=== PATIENT | female | born 1975 | race Caucasian/White ===

== ENCOUNTER 2018-01-24 09:21 | Emergency (ER) | payer OTHER ==
[~2018-01-24] VITALS: Ht 152.4 cm; Wt 52.2 kg
[2018-01-24 09:28] VITALS: BP 134/87
[2018-01-24] MEDS ORDERED: KETOROLAC TROMETHAMINE INJ 30 MG/ML VIAL ONE (09:43)
--- NOTE | 2018-01-24 09:52 | NUR ---
PT SIGNED WAIVER FOR TORADOL SHOT. OK PER MD VELAZCO
[2018-01-24] MEDS ORDERED: KETOROLAC TROMETHAMINE INJ 60 MG/2 ML VIAL IM ONE (10:00)
== END 2018-01-24 09:53 | disposition home or self-care (01) ==
LOC: ER 09:23
DX: G89.29 Other chronic pain (principal); M79.671 Pain in right foot; M79.672 Pain in left foot; G35 Multiple sclerosis; G40.909 Epilepsy, unspecified, not intractable, without status epilepticus; Z91.040 Latex allergy status
CPT/HCPCS: 96372; 99283; A4606; J1885; Z7610

== ENCOUNTER 2023-12-06 23:59 | Inpatient (IN) | payer MEDICAID, OTHER ==
[~2023-12-06] VITALS: Ht 154.9 cm; Wt 73.6 kg
[2023-12-07] MEDS ORDERED: VANCOMYCIN 1 GM /D5W 250 ML PB IV ONE ×2 (01:07→12:10)
[2023-12-07] MEDS: VANCOMYCIN 1 GM in IV D5W 250 ML IV ONE (01:25)
[2023-12-07 01:48] LABS: BASOPHILS # (AUTO) 0.1 K/uL (0.0-0.2); BASOPHILS % (AUTO) 0.5 % (0.0-2.0); EOSINOPHILS # (AUTO) 0.1 K/uL (0.0-0.7); EOSINOPHILS % (AUTO) 0.5 % (0.0-6.0); HEMATOCRIT 41 % (33-45); HEMOGLOBIN 13.5 g/dL (11.5-14.8); LYMPHOCYTES # (AUTO) 3.2 K/uL (0.8-4.8); LYMPHOCYTES % (AUTO) 22.9 % (20.0-44.0); MEAN CORPUSCULAR HEMOGLOBIN 28 PG (26.0-33.0); MEAN CORPUSCULAR HGB CONC 33 g/dl (31.0-36.0); MEAN CORPUSCULAR VOLUME 84 fL (82-100); NEUTROPHILS # (AUTO) 9.6 K/uL (1.8-8.9); NEUTROPHILS % (AUTO) 69.1 % (43.0-81.0); PLATELET COUNT (AUTO) 516 K/uL (150-450); RED BLOOD CELL COUNT(AUTO) 4.83 MIL/uL (4.0-5.2); RED CELL DISTRIBUTION WIDTH 13.2 % (11.5-15.0); WHITE BLOOD COUNT (AUTO) 13.8 K/uL (4.3-11.0)
[2023-12-07] MEDS: MORPHINE SULFATE INJ 2 MG/ML DISP.SYRIN IV ONE (02:00)
[2023-12-07] MEDS ORDERED: MORPHINE SULFATE INJ 4 MG/ML DISP.SYRIN ONE (02:00)
[2023-12-07 02:06] LABS: ALANINE AMINOTRANSFERASE 49 U/L (12-78); ALBUMIN 2.3 g/dL (3.4-5.0); ALKALINE PHOSPHATASE 201 U/L (46-116); ASPARTATE AMINOTRANSFERASE 26 U/L (15-37); BILIRUBIN,DIRECT 0.1 mg/dL (0.0-0.2); BILIRUBIN,TOTAL 0.2 mg/dL (0.2-1.0); CALCIUM, SERUM 8.3 mg/dL (8.5-10.1); CARBON DIOXIDE 29 mmol/L (21-32); CHLORIDE 102 mmol/L (98-107); CREATININE 0.9 mg/dL (0.6-1.3); GLUCOSE 353 mg/dL (74-106); POTASSIUM 4.2 mmol/L (3.5-5.1); SODIUM SERUM 139 mmol/L (136-145); TOTAL PROTEIN, SERUM 7.9 g/dL (6.4-8.2); UREA NITROGEN, BLOOD 12 mg/dL (7-18)
[2023-12-07 02:09] LABS: INR 1.09 (0.91-1.10); PARTIAL THROMBOPLASTIN TIME 31.4 SEC (24.3-34.3); PROTHROMBIN TIME 11.5 SECS (9.2-11.1)
[2023-12-07 02:27] LABS: LACTIC ACID 2.6 mmol/L (0.4-2.0)
[2023-12-07] MEDS ORDERED: Z GUARD REMEDY 4 OZ OINT TP PRN (03:00)
[2023-12-07] MEDS ORDERED: TEMAZEPAM 15 MG CAPSULE PO PRN (03:00)
[2023-12-07] MEDS ORDERED: DEXTROSE 50%-WATER 50 ML DISP.SYRIN IV PRN ×2 (03:00→20:30)
[2023-12-07] MEDS ORDERED: MAG HYDROX/AL HYDROX/SIMETH 30 ML UDC PO PRN (03:00)
[2023-12-07] MEDS ORDERED: ACETAMINOPHEN 325 MG TABLET PO PRN (03:00)
[2023-12-07] MEDS ORDERED: ONDANSETRON HCL/PF 4 MG/2 ML VIAL IVP PRN (03:00)
[2023-12-07] MEDS: BLOOD SUGAR DIAGNOSTIC 1 EACH STRIP IN SCH ×2 (07:30→23:11)
[2023-12-07] MEDS ORDERED: HYDROCODONE/APAP 5/325MG TABLET ONE ×2 (07:36→16:00)
[2023-12-07] MEDS: HYDROCODONE/APAP 5/325MG TABLET PO PRN (07:37)
[2023-12-07] MEDS ORDERED: PANTOPRAZOLE 40 MG TABLET.DR PO ONE (07:50)
[2023-12-07] MEDS: PANTOPRAZOLE 40 MG TABLET.DR PO SCH (07:50)
[2023-12-07] MEDS ORDERED: CARB-53 PO (07:52)
[2023-12-07] MEDS ORDERED: INSU100V7 SQ (07:52)
[2023-12-07] MEDS ORDERED: CLON2TAB PO (07:52)
[2023-12-07] MEDS ORDERED: ACET-2605 PO (07:52)
[2023-12-07] MEDS ORDERED: FURO-145 PO (07:52)
[2023-12-07] MEDS ORDERED: QUET400T PO (07:52)
[2023-12-07] MEDS: VANCOMYCIN 1 GM in IV D5W 250 ML IV SCH (12:12)
[2023-12-07] MEDS ORDERED: LIDOCAINE 1% INJ 50 ML MDV IJ ONE (15:57)
[2023-12-07] MEDS: HYDROCODONE/APAP 10/325MG TABLET PO PRN (18:00)
[2023-12-07] MEDS: INSULIN REGULAR, HUMAN 100 UNIT/ML 3 ML VIAL SQ PRN (18:21)
[2023-12-07] MEDS ORDERED: ACETAMINOPHEN ES 500 MG TABLET PO PRN (18:30)
[2023-12-07] MEDS: IV NS 0.9% 1,000 ML IV PRN (19:01)
[2023-12-07 20:00] VITALS: BP 118/78; TEMP 98.1; O2SAT 100
[2023-12-07] MEDS: QUETIAPINE FUMARATE 100 MG TABLET PO SCH (22:53)
[2023-12-07] MEDS: *INSULIN REGULAR(HUMULIN R)HUM 100 UNIT/ML VIAL SQ PRN (22:55)
[2023-12-07] MEDS: INSULIN GLARGINE, 100 UNIT/ML CARTRIDGE SQ SCH (22:58)
[2023-12-08] MEDS: INSULIN REGULAR, HUMAN 100 UNIT/ML 3 ML VIAL SQ PRN (07:00)
[2023-12-08 07:49] LABS: BASOPHILS # (AUTO) 0.1 K/uL (0.0-0.2); BASOPHILS % (AUTO) 0.5 % (0.0-2.0); EOSINOPHILS # (AUTO) 0.2 K/uL (0.0-0.7); EOSINOPHILS % (AUTO) 1.7 % (0.0-6.0); HEMATOCRIT 38 % (33-45); HEMOGLOBIN 12.8 g/dL (11.5-14.8); LYMPHOCYTES # (AUTO) 4.2 K/uL (0.8-4.8); LYMPHOCYTES % (AUTO) 36.6 % (20.0-44.0); MEAN CORPUSCULAR HEMOGLOBIN 28 PG (26.0-33.0); MEAN CORPUSCULAR HGB CONC 34 g/dl (31.0-36.0); MEAN CORPUSCULAR VOLUME 84 fL (82-100); NEUTROPHILS % (AUTO) 52.2 % (43.0-81.0); PLATELET COUNT (AUTO) 499 K/uL (150-450); RED BLOOD CELL COUNT(AUTO) 4.56 MIL/uL (4.0-5.2); RED CELL DISTRIBUTION WIDTH 13.3 % (11.5-15.0); WHITE BLOOD COUNT (AUTO) 11.6 K/uL (4.3-11.0)
[2023-12-08 08:00] VITALS: BP 94/66; TEMP 97.9; O2SAT 95
[2023-12-08 08:28] LABS: CALCIUM, SERUM 8.3 mg/dL (8.5-10.1); CREATININE 0.6 mg/dL (0.6-1.3); MAGNESIUM 1.9 mg/dL (1.8-2.4)
[2023-12-08] MEDS: CARBAMAZEPINE XR 200 MG TAB.SR.12H PO SCH (09:00)
[2023-12-08] MEDS: clonazePAM 1 MG TABLET PO SCH (09:00)
[2023-12-08 16:00] VITALS: BP 108/69; TEMP 97.7; O2SAT 97
[2023-12-08] MEDS ORDERED: POLYETHYLENE GLYCOL 3350 17 GM POWD.PACK PO PRN (18:00)
[2023-12-08] MEDS: DOCUSATE SODIUM 100 MG CAPSULE PO SCH (18:11)
[2023-12-08 20:00] VITALS: BP 110/71; TEMP 97.7; O2SAT 96
[2023-12-08] MEDS: VANCOMYCIN 750 MG in IV D5W 250 ML IV SCH (20:52)
[2023-12-09] VITALS: BP 115/73; TEMP 97.8; O2SAT 96
[2023-12-09 08:00] VITALS: BP 90/67; TEMP 97.5
[2023-12-09] MEDS: CARBAMAZEPINE 200 MG TABLET PO SCH (10:25)
[2023-12-09 12:00] VITALS: BP 94/66; TEMP 97.7; O2SAT 99
[2023-12-09] MEDS ORDERED: QUETIAPINE FUMARATE 25 MG TABLET PO SCH (14:00)
[2023-12-09 16:00] VITALS: BP 97/70
[2023-12-09 20:19] VITALS: BP 109/67; TEMP 98.2; O2SAT 96
[2023-12-09] MEDS: QUETIAPINE FUMARATE 100 MG TABLET PO SCH (22:23)
[2023-12-09] MEDS: MAGNESIUM HYDROXIDE 30 ML UDC PO PRN (22:35)
[2023-12-10 04:23] LABS: PREGNANCY TEST URINE QUAL NEGATIVE (NEGATIVE)
[2023-12-10] MEDS ORDERED: FENTANYL PF 100MCG/2ML AMPUL ONE ×2 (07:09→08:12)
[2023-12-10] MEDS ORDERED: FAMOTIDINE/PF INJ 20 MG/2 ML VIAL IV ONE (07:09)
[2023-12-10] MEDS ORDERED: BUPIVACAINE 0.5 % PF 150 MG/30 ML VIAL ONE (07:12)
[2023-12-10] MEDS ORDERED: ANESTHESIA TRAY IN PYXIS 1 EA TRAY MC ONE (07:12)
[2023-12-10] MEDS ORDERED: BUPIVACAINE 0.25% 75 MG/30 ML VIAL ONE (07:12)
[2023-12-10] MEDS ORDERED: LIDOCAINE HCL/MPF 1% 30 ML VIAL IJ ONE (07:12)
[2023-12-10] MEDS ORDERED: LIDOCAINE 1%-EPI 1:100,000 20 ML VIAL ONE (07:12)
[2023-12-10] MEDS ORDERED: CELLULOSE,OXIDIZED 1 EA PACK MC ONE (08:08)
[2023-12-10] MEDS: clonazePAM 0.5 MG TABLET PO SCH (09:00)
[2023-12-10 09:25] VITALS: BP 95/73; TEMP 98.2; O2SAT 96
[2023-12-10 09:54] LABS: BASOPHILS # (AUTO) 0.1 K/uL (0.0-0.2); BASOPHILS % (AUTO) 0.8 % (0.0-2.0); EOSINOPHILS # (AUTO) 0.1 K/uL (0.0-0.7); EOSINOPHILS % (AUTO) 0.9 % (0.0-6.0); HEMATOCRIT 38 % (33-45); HEMOGLOBIN 12.2 g/dL (11.5-14.8); LYMPHOCYTES # (AUTO) 4.5 K/uL (0.8-4.8); LYMPHOCYTES % (AUTO) 31.2 % (20.0-44.0); MEAN CORPUSCULAR HEMOGLOBIN 28 PG (26.0-33.0); MEAN CORPUSCULAR HGB CONC 32 g/dl (31.0-36.0); MEAN CORPUSCULAR VOLUME 86 fL (82-100); MONOCYTES # (AUTO) 1.1 K/uL (0.1-1.30); MONOCYTES % (AUTO) 7.3 % (2.0-12.0); NEUTROPHILS # (AUTO) 8.7 K/uL (1.8-8.9); NEUTROPHILS % (AUTO) 59.8 % (43.0-81.0); PLATELET COUNT (AUTO) 480 K/uL (150-450); RED BLOOD CELL COUNT(AUTO) 4.36 MIL/uL (4.0-5.2); RED CELL DISTRIBUTION WIDTH 13.9 % (11.5-15.0); WHITE BLOOD COUNT (AUTO) 14.5 K/uL (4.3-11.0)
[2023-12-10 10:08] LABS: CALCIUM, SERUM 7.5 mg/dL (8.5-10.1); CREATININE 0.7 mg/dL (0.6-1.3); MAGNESIUM 2.1 mg/dL (1.8-2.4); PHOSPHORUS 4.4 mg/dL (2.5-4.9); POTASSIUM 4.6 mmol/L (3.5-5.1)
[2023-12-10 16:00] VITALS: BP 100/51; TEMP 99.3; O2SAT 97
[2023-12-10 20:00] VITALS: BP 105/72; TEMP 98.6; O2SAT 98
[2023-12-10 20:22] LABS: PROTHROMBIN TIME 10.6 SECS (9.2-11.1)
[2023-12-11 07:00] VITALS: BP 109/74; TEMP 98.1; O2SAT 99
[2023-12-11 11:38] LABS: BASOPHILS # (AUTO) 0.1 K/uL (0.0-0.2); BASOPHILS % (AUTO) 0.5 % (0.0-2.0); EOSINOPHILS # (AUTO) 0.1 K/uL (0.0-0.7); EOSINOPHILS % (AUTO) 1.1 % (0.0-6.0); HEMATOCRIT 30 % (33-45); LYMPHOCYTES # (AUTO) 3.8 K/uL (0.8-4.8); LYMPHOCYTES % (AUTO) 34.8 % (20.0-44.0); MEAN CORPUSCULAR HEMOGLOBIN 28 PG (26.0-33.0); MEAN CORPUSCULAR HGB CONC 34 g/dl (31.0-36.0); MEAN CORPUSCULAR VOLUME 85 fL (82-100); MONOCYTES # (AUTO) 0.8 K/uL (0.1-1.30); MONOCYTES % (AUTO) 7.2 % (2.0-12.0); NEUTROPHILS # (AUTO) 6.2 K/uL (1.8-8.9); NEUTROPHILS % (AUTO) 56.4 % (43.0-81.0); PLATELET COUNT (AUTO) 489 K/uL (150-450); RED BLOOD CELL COUNT(AUTO) 3.54 MIL/uL (4.0-5.2); RED CELL DISTRIBUTION WIDTH 13.1 % (11.5-15.0); WHITE BLOOD COUNT (AUTO) 10.9 K/uL (4.3-11.0)
[2023-12-11 11:50] LABS: CALCIUM, SERUM 7.5 mg/dL (8.5-10.1); CREATININE 0.7 mg/dL (0.6-1.3); MAGNESIUM 1.9 mg/dL (1.8-2.4); PHOSPHORUS 3.2 mg/dL (2.5-4.9); POTASSIUM 4.1 mmol/L (3.5-5.1)
[2023-12-11 16:00] VITALS: BP 121/78; TEMP 97.7; O2SAT 100
[2023-12-11 20:00] VITALS: BP 120/78; TEMP 97.7; O2SAT 98
[2023-12-12 07:00] VITALS: BP 119/81; TEMP 97.8; O2SAT 100
[2023-12-12 07:04] LABS: CALCIUM, SERUM 7.5 mg/dL (8.5-10.1); CREATININE 0.8 mg/dL (0.6-1.3); POTASSIUM 3.8 mmol/L (3.5-5.1)
[2023-12-12] MEDS ORDERED: QUETIAPINE FUMARATE 25 MG TABLET PO PRN (09:00)
[2023-12-12] MEDS ORDERED: hydrOXYzine PAMOATE 25 MG CAPSULE PO PRN (09:00)
[2023-12-12 16:00] VITALS: BP 117/76; TEMP 97.5; O2SAT 99
[2023-12-12 20:00] VITALS: BP 109/76; TEMP 98.1; O2SAT 98
[2023-12-12] MEDS: QUETIAPINE FUMARATE 100 MG TABLET PO SCH (21:22)
[2023-12-13 08:00] VITALS: BP 120/83; TEMP 97.9; O2SAT 99
[2023-12-13 09:27] LABS: CALCIUM, SERUM 7.7 mg/dL (8.5-10.1); CREATININE 0.8 mg/dL (0.6-1.3)
[2023-12-13 16:00] VITALS: BP 111/76; TEMP 98.4; O2SAT 97
[2023-12-13 20:00] VITALS: BP 130/73; TEMP 97.9; O2SAT 95
[2023-12-13 20:39] LABS: HIV-1 p24 ANTIGEN NON REACTIVE (NONREACTIVE); HIV-1/2 ANTIBODY NON REACTIVE (NONREACTIVE)
[2023-12-14] MEDS ORDERED: CEPH-570 PO (08:45)
[2023-12-14] MEDS ORDERED: CLON0.5T4 PO (08:45)
[2023-12-14] MEDS ORDERED: Quetiapine Fumarate PO (08:45)
[2023-12-14] MEDS ORDERED: Insulin Glargine,Hum SQ (08:45)
== END 2023-12-14 18:06 | disposition home health service (06) | DRG 317 ==
LOC: ER 12-07 00:01 → TRANSITION 12-07 06:26 → MED 12-07 17:14
PROVIDERS: ADMIT Student in an Organized Health Care Education/Training Program
PROC: 0J9Q3ZZ Drainage of Right Foot Subcutaneous Tissue and Fascia, Percutaneous Approach (ICD-10-PCS; principal; 2023-12-07)
PROC: 0KBV0ZZ Excision of Right Foot Muscle, Open Approach (ICD-10-PCS; 2023-12-10)
DX: E11.69 Type 2 diabetes mellitus with other specified complication (principal); M86.8X7 Other osteomyelitis, ankle and foot; E44.0 Moderate protein-calorie malnutrition; E11.621 Type 2 diabetes mellitus with foot ulcer; E11.42 Type 2 diabetes mellitus with diabetic polyneuropathy; L03.115 Cellulitis of right lower limb; F25.9 Schizoaffective disorder, unspecified; L97.513 Non-pressure chronic ulcer of other part of right foot with necrosis of muscle; B95.1 Streptococcus, group B, as the cause of diseases classified elsewhere; M79.7 Fibromyalgia; G40.909 Epilepsy, unspecified, not intractable, without status epilepticus; E11.65 Type 2 diabetes mellitus with hyperglycemia; Z59.00 Homelessness unspecified; F39 Unspecified mood [affective] disorder; F41.9 Anxiety disorder, unspecified; F15.10 Other stimulant abuse, uncomplicated; F11.10 Opioid abuse, uncomplicated; Z68.30 Body mass index [BMI] 30.0-30.9, adult; F41.1 Generalized anxiety disorder; Z79.4 Long term (current) use of insulin; Z91.199 Patient's noncompliance with other medical treatment and regimen due to unspecified reason; F42.9 Obsessive-compulsive disorder, unspecified; M85.80 Other specified disorders of bone density and structure, unspecified site
CPT/HCPCS: 36415; 71045-TC; 73630-TC; 80048-TC; 80076-TC; 80202-TC; 82962-TC; 83605-TC; 83735-TC; 84100-TC; 84703-TC; 85025-TC; 85610-TC; 85652-TC; 85730-TC; 86140-TC; 87040-TC; 87081-TC; 87806; 97110-TC; 97116-TC; 97530-TC; A4217; A4223; A6209; A6253; A6403; G0378; J1815; J2270; J2405; J2704; J3010; J3370; J3371; J3490; J7030; J7060